=== PATIENT | male | born 1940 | race Caucasian/White ===

== ENCOUNTER → 2018-11-02 20:18 | Outpatient (CLI) | payer MEDICARE, MEDICAID, SELFPAY | PROVIDERS: Family Provider Family Medicine; PCP Family Medicine; Referring Provider Nurse Practitioner Adult Health; Visit Provider Nurse Practitioner Adult Health | DX: G47.30 Sleep apnea, unspecified (principal); E11.22 Type 2 diabetes mellitus with diabetic chronic kidney disease; N18.9 Chronic kidney disease, unspecified; E78.5 Hyperlipidemia, unspecified; E03.9 Hypothyroidism, unspecified | CPT/HCPCS: 95811 ==

== ENCOUNTER → 2019-10-17 18:40 | Outpatient (REF) | payer MEDICARE, SELFPAY ==
[2016-02-18 07:58] VITALS: BMI 36.8
== END ==
LOC: MTDU 18:40
PROVIDERS: PCP Family Medicine; Visit Provider Family Medicine
DX: U07.1 COVID-19 (principal)
CPT/HCPCS: 87635; U0004